=== PATIENT | female | born 1985 | race Hispanic/Latino ===

== ENCOUNTER 2017-09-11 20:30 | Emergency (ER) | payer OTHER ==
[2017-09-11] MEDS ORDERED: Acetaminophen 500 MG TAB ONE (22:04)
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
== END 2017-09-11 22:50 | disposition home or self-care (01) ==
LOC: ERS 20:30
DX: S39.012A Strain of muscle, fascia and tendon of lower back, initial encounter (principal); F17.210 Nicotine dependence, cigarettes, uncomplicated; V43.52XA Car driver injured in collision with other type car in traffic accident, initial encounter